=== PATIENT | male | born 1990 | race Caucasian/White ===

== ENCOUNTER 2020-04-18 11:16 | Outpatient (CLI) | payer OTHER, SELFPAY ==
--- NOTE | 2020-04-18 11:25 | CT_ITS ---
WS: [id number] CT HEAD TECHNIQUE: Noncontrast CT of the head obtained from the skullbase to the vertex. CLINICAL INFORMATION: HYDROCEPHALUS COMPARISON: 2019 DLP: 1124.[address] scans at [facility] use at least one of these dose optimization techniques: automat ed exposure control; mA and/or kV adjustment per patient size (includes targeted exams where dose is matched to clinical indication); or iterative reconstruction. FINDINGS: No evidence of intracranial hemorrhage or mass effect. Ventricular system and basal cisterns are sood nt. Stable right parietal shunt catheter with tip in the left frontal horn. Ventricular size is uncha nged. No hydrocephalus. No transependymal edema. Normal balderas-white differentiation. Mastoid air cells and paranasal sinuses are well aerated. CT/CT head wo con* [id number] IMPRESSION: 1. Stable right parietal shunt catheter. No hydrocephalus. 2. No changes from 2019.
--- NOTE | 2020-04-18 11:27 | XR_ITS ---
WS: [id number] INDICATION: Hydrocephalus TECHNIQUE: Shunt series FINDINGS: Right parietal shunt catheter with tip directed towards the midline. Shunt tubing over the right neck and right hemithorax appears intact. Shunt tubing extends into the pelvis. Shunt tubing ap pears intact. Additional abandoned shunt tubing in the right abdomen. XR/XR shunt series IMPRESSION: Intact shunt tubing
== END 2020-04-18 11:17 | disposition home or self-care (01) ==
PROVIDERS: Family Provider Family Medicine; PCP Family Medicine; Visit Provider Specialist
DX: G91.9 Hydrocephalus, unspecified (principal); Z98.2 Presence of cerebrospinal fluid drainage device
CPT/HCPCS: 70250; 70450; 71046; 72040; 74019